=== PATIENT | female | born 1965 | race Caucasian/White ===

== ENCOUNTER → 2023-12-12 | Outpatient (REF) | payer MEDICARE ==
[~2023-12-12] MED LIST: BENZOTROPINE PO; BOOST237 ML PO; CLARITIN10 M2 PO; CLONAZEPAM1 MG PO; COLACE100 MG PO; DEPAKOTE ER500 MG PO; DETROL LA4 MG PO; DEXMEDETOMIDINE HCL 200 MCG/2 ML VIAL ONE; FENTANYL CITRATE/PF 100MCG/2 ML INJ ONE; FISH OIL 1,0001 EAC2 PO; IBUPROFEN200 MG PO; IMODIUM2 MG PO; LEVOTHYROXINE75 MCG PO; LIDOCAINE HCL 2% LOCAL INJ 5 ML SDV VIAL INJ ONE; LOESTRIN1 EAC1 PO; LORAZEPAM2 MG PO; METROCREAM45 GM TD; NEXIUM40 MG PO; PRAVASTATIN SOD10 MG PO; PROPOFOL IV EMULSION 10 MG/ML 50 ML VIAL IV ONE; RANITIDINE HCL150 M1 PO; REGLAN10 MG PO; RISPERDAL1 MG PO; RISPERDAL2 MG PO; SERTRALINE HCL100 MG PO; SUCRALFATE1 GM PO; UREA 20% TD; VITAMIN D32000 UNIT PO
[2023-12-12 11:45] VITALS: TEMP 97.2
[2023-12-12 12:00] VITALS: BP 127/72; PULSE 77; RESP 16; O2SAT 100
== END ==
LOC: MRI 11-22 08:05
PROVIDERS: ATTEND Psychiatry & Neurology Neurology
DX: G12.29 Other motor neuron disease (principal); R56.9 Unspecified convulsions; G80.8 Other cerebral palsy; M54.2 Cervicalgia
CPT/HCPCS: 70551; 72141; J2001; J2704; J3010